=== PATIENT | female | born 1960 | race Caucasian/White ===

== ENCOUNTER 2017-03-06 03:25 | Emergency (ER) | payer BC ==
[~2017-03-06] VITALS: Ht 157.5 cm; Wt 54.5 kg
[2017-03-06 04:30] LABS: HEMATOCRIT 44.3 % (37.0-47.0); HEMOGLOBIN 15.5 g/dl (12.5-16.0); MEAN CELL VOLUME 88 fl (80.0-100.0); MEAN CORPUSCULAR HEMOGLOBIN 31 pg (27.0-31.0); MEAN CORPUSCULAR HGB CONC 35 g/dl (33.0-37.0); MEAN PLATELET VOLUME 12.8 fl (7.4-10.4); PLATELET COUNT 55 K/mm3 (130-400); RED BLOOD COUNT 5.01 M/mm3 (4.10-5.30); REDCELL DISTRIBUTION WIDTH-CV 12.9 % (11.5-14.5)
[2017-03-06 04:44] LABS: ADJUSTED CALCIUM 8.5 mg/dL (8.4-10.2); ALBUMIN 3.3 gm/dL (3.5-5.0); BILIRUBIN,TOTAL 6.3 mg/dL (0.0-1.0); CALCIUM 7.9 mg/dL (8.4-10.2); POTASSIUM 3.6 mmol/L (3.4-5.0)
[2017-03-06 04:48] LABS: ADD PATHOLOGY DIFF REVIEW NO
[2017-03-06 04:50] LABS: CREATININE, serum 3.4 mg/dL (0.52-1.25)
[2017-03-06 05:27] LABS: ARTERIAL BLD GAS O2 SATURATION 97.1 % (92-100); ARTERIAL BLD GAS TCO2 CT 12.2; ARTERIAL BLOOD GAS BASE EXCESS -13.8 (-2-2); ARTERIAL BLOOD GAS HCO3 11.4 meq/L (22-26); ARTERIAL BLOOD GAS PO2 105.7 mmHg (80-100); ARTERIAL BLOOD GAS pH 7.27 (7.35-7.45); OXYHEMOGLOBIN 95.9 %
[2017-03-06 05:28] LABS: ALLEN TEST NO; ATS? YES
[2017-03-06] MEDS ORDERED: FLEXERIL5 MG PO (05:28)
[2017-03-06] MEDS ORDERED: MOBIC 7.5MG7.5 MG PO (05:29)
[2017-03-06] MEDS ORDERED: OMNICEF 300MG300 MG PO (05:29)
[2017-03-06 06:20] VITALS: BP 97/65; PULSE 160; TEMP 98.2
[2017-03-06 06:59] LABS: BAND 20 % (0-10); NEUTROPHILS 69 % (42.0-75.2); TOTAL CELLS COUNTED 100
== END 2017-03-06 06:20 | disposition short-term general hospital (02) ==
LOC: COL.ER 03:25
PROVIDERS: Emergency Medicine
DX: A41.9 Sepsis, unspecified organism (principal); E86.9 Volume depletion, unspecified; I95.9 Hypotension, unspecified; J96.90 Respiratory failure, unspecified, unspecified whether with hypoxia or hypercapnia; N28.9 Disorder of kidney and ureter, unspecified; K72.90 Hepatic failure, unspecified without coma; R00.0 Tachycardia, unspecified; J02.0 Streptococcal pharyngitis
CPT/HCPCS: J0696; J2250; J2765; J3010; J3370; J7030; J7050; J7060